=== PATIENT | female | born 1965 | race Caucasian/White ===

== ENCOUNTER 2023-05-13 08:11 | Emergency (ER) | payer BC, SELFPAY ==
--- NOTE | ~2023-05-13 | XR_ITS ---
EXAMINATION: XR wrist RT min 3V INDICATION: Right wrist pain, initial encounter TECHNIQUE: Three views of the right wrist are obtained. COMPARISON: None available FINDINGS: There is an acute, traumatic, closed, transverse, comminuted fracture of the distal radius. The distal fracture fragment demonstrates 5 mm of dorsal displacement. There is a transverse ulnar s tyloid avulsion. Soft tissue swelling surrounds the fractures. Radiocarpal alignment is normal. IMPRESSION: 1. Comminuted, minimally displaced distal radius fracture. 2. Ulnar styloid avulsion. Reviewed, dictated and finalized at location B.
--- NOTE | ~2023-05-13 | XR_ITS ---
EXAMINATION: XR forearm RT 2V INDICATION: Right forearm pain, initial encounter TECHNIQUE: Two views of the right forearm are obtained on three radiographs COMPARISON: None available FINDINGS: There is an acute, traumatic, closed, comminuted, transverse fracture of the distal radius. The distal fracture fragment is dorsally displaced by approximately 5 mm. Radiocarpal alignment appe ars normal. There is normal alignment at the elbow. Ulnar styloid avulsion is also noted. IMPRESSION: 1. Comminuted, minimally displaced transverse fracture of the distal radius. 2. Ulnar styloid avulsion. Reviewed, dictated and finalized at location B.
--- NOTE | ~2023-05-13 | XR_ITS ---
EXAMINATION: XR elbow RT 2V INDICATION: Right elbow pain TECHNIQUE: Two views of the right elbow are obtained. COMPARISON: None available FINDINGS: No fracture, dislocation, or subluxation. The bones, soft tissues, and joint spaces are nor mal. IMPRESSION: 1. No acute osseous abnormality. Reviewed, dictated and finalized at location B.
--- NOTE | ~2023-05-13 | XR_ITS ---
EXAMINATION: XR hip RT 2V w AP pelvis INDICATION: Right hip pain TECHNIQUE: AP view the pelvis and two views of the right hip are obtained. COMPARISON: None available FINDINGS: Bone alignment is normal. There is no fracture. The soft tissues are unremarkable. IMPRESSION: 1. No acute osseous abnormality. Reviewed, dictated and finalized at location B.
--- NOTE | ~2023-05-13 | XR_ITS ---
EXAMINATION: XR knee LT 3V DATE: 05/13/2023 09:50 INDICATION: Left knee pain TECHNIQUE: Three views of the left knee were obtained. COMPARISON: None. FINDINGS: Alignment is normal. No fracture or osteochondral lesion. Joint spaces are normal with no e rosions. No joint effusion/synovitis. Soft tissues are unremarkable. IMPRESSION: 1. No acute osseous abnormality. Reviewed, dictated and finalized at location B.
[2023-05-13 08:10] VITALS: BP 171/100; PULSE 115; RESP 20; O2SAT 98
[2023-05-13 08:30] VITALS: TEMP 36.6
--- NOTE | 2023-05-13 08:32 | PC.NURSE ---
Pt stated to this RN that it was completely ridiculous that I could not give her morphine before the provider assessed her. Pt was educated that nurses are unable to prescribe medications and a MD would be in shortly.
[2023-05-13] MEDS: MORPHINE SULFATE (*CRX) 4 MG/ML INJ IV PUSH ×2 (08:47→09:28)
[2023-05-13 11:31] VITALS: BP 145/79; PULSE 120; RESP 18; O2SAT 100
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
--- NOTE | 2023-05-13 12:05 | PC.NURSE ---
Nurse to bedside to given d/c instructions, pt requesting housing resources. Care Coordination notified of pt request.
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
--- NOTE | 2023-05-13 12:07 | PC.NURSE ---
Care coordination provided resources for housing for pt
== END 2023-05-13 12:07 | disposition home or self-care (01) ==
PROVIDERS: Emergency Provider Emergency Medicine
DX: S52.591A Other fractures of lower end of right radius, initial encounter for closed fracture (principal); S52.611A Displaced fracture of right ulna styloid process, initial encounter for closed fracture; V18.4XXA Pedal cycle driver injured in noncollision transport accident in traffic accident, initial encounter; Y93.55 Activity, bike riding
CPT/HCPCS: 29125; 73070; 73090; 73110; 73502; 73562; 96374; 96376; 99284; A4565; J2270

== ENCOUNTER 2023-11-10 10:45 | Outpatient (RCR) | payer BC, SELFPAY ==
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
--- NOTE | 2023-10-10 14:38 | OPREHPOC ---
Outpatient Therapy Plan of Care This is a Multidisciplinary Plan of Care that may contain components documented by all disciplines (PT, OT, and ST.) OT Problem 1 OT Problem #1 Knowledge Deficit OT Goal 1 Goal 1. Patient to be independent with instructed materials. Target Visit 8 OT Problem 2 OT Problem #2 Impaired Range of Motion OT Goal 1 Goal 1. Increase active ROM of the right UE: - supination to 80 deg. - wrist flexion to 60 deg. - wrist extension to 60 deg. - be able to make a hook fist with 1 cm or less gap between the finger tips and DPC Target Visit 8 OT Problem 3 OT Problem #3 Impaired Strength OT Goal 1 Goal 1. Increase (R) contract forester strength to 50 lbs. 2. Increase (R) wrist gross strength as demonstrated by being able to complete wrist strengthening with 2 lb. free weight in all planes x20 reps. Target Visit 8
--- NOTE | 2023-11-10 11:40 | OTOPPROG ---
Assessment and note entered by ELIEZER Carmen/Brent, CHT Progress Update 11/10/23 Diagnosis Right distal radius fracture Onset 05/13/23 Subjective Information Patient reports some progress, but does report residual stiffness and discomfort with and use. She states she is having an easier time with writing, washing her back, and lifting pots/pans. States she has to still use her left hand for hygiene tasks during toileting. During our month of therapy she has developed a trigger finger in the right middle finger, so we've had to scale back on strengthening and focusing on reducing inflammation. She is very concerned about the trigger finger and is not happy with the progress of this finger. She has been wearing a splint during the day and a compression glove at night to help with the trigger finger. Recommended to her that an injection could be beneficial to this finger. ROM of the forearm and wrist has returned to functional limits. Technical Manager strength improved from 35 lbs. to 50 lbs. Quickdash at start of care: 45.5% Quickdash today: 40.9% Assessment OT Clinical Summary Patient referred to OT with dx of right distal radius fracture. During our course of therapy she developed a trigger finger to the right middle finger and treatments have also began to include splinting and treatment for this. Discussed the benefits of scheduling an appointment with the doctor to discuss an injection to the tendon. She continues to have ADL limitations due to residual weakness, stiffness, and inflammation. Continued skilled OT indicated to maximize functional ROM and strength of the right wrist/hand via therapeutic exercise, modalities, manual therapy, and HEP instruction and progression. Plan of Care Interventions Therapeutic Exercise,Manual Therapy,Therapeutic Activities,Hot Pack/Cold Pack,Ultrasound,Paraffin OT Services Indicated Yes Treatment Frequency and 2x/week for 3 weeks Duration These treatments will address the objective and functional deficits as defined above. The patient will be advanced safely and appropriately in order for the patient to progress towards his/her prior level of function. Additional exercises will be introduced and as well as a comprehensive home exercise program upon discharge, if needed, ?to ensure carryover of functional gains achieved in the clinic. This treatment plan has been reviewed and agreement upon by the patient.
--- NOTE | 2023-11-10 11:41 | OPREHPOC ---
Outpatient Therapy Plan of Care This is a Multidisciplinary Plan of Care that may contain components documented by all disciplines (PT, OT, and ST.) OT Problem 1 OT Problem #1 Knowledge Deficit OT Goal 1 Goal 1. Patient to be independent with instructed materials. ---OT POC UPDATE 11/10/23--- 1. Met, continue as HEP is progressed Target Visit 15 OT Problem 2 OT Problem #2 Impaired Range of Motion OT Goal 1 Goal 1. Increase active ROM of the right UE: - supination to 80 deg. - wrist flexion to 60 deg. - wrist extension to 60 deg. - be able to make a hook fist with 1 cm or less gap between the finger tips and DPC Target Visit 8 OT Problem 3 OT Problem #3 Impaired Strength OT Goal 1 Goal 1. Increase (R) singer songwriter strength to 50 lbs. 2. Increase (R) wrist gross strength as demonstrated by being able to complete wrist strengthening with 2 lb. free weight in all planes x20 reps. ---OT POC UPDATE 11/10/23--- 1. Met, upgrade to 60 lbs. 2. Able to complete with 1 lb, continue goal Target Visit 15 OT Problem 4 OT Problem #4 Impaired Flexibility OT Goal 1 Goal 1. Patient to demonstrate reduced signs/symptoms of a trigger finger as demonstrated by being able to complete singer songwriter strengthening with yellow putty x5 minute without finger triggering. Target Visit 15
--- NOTE | 2023-12-05 08:48 | OTOPDC ---
Assessment and note entered by Hugo Archer, OTR/Brent, CHT Discharge Notification 12/05/23 OT Clinical Summary Patient has not returned for therapy since her re- evaluation on 11/10/23. Please refer to 11/10/23 progress note for most recent patient update and summary. Discharging today due to lack of attendance.
== END 2023-12-26 09:20 | disposition home or self-care (01) ==
LOC: ANHOT 10:45
PROVIDERS: Visit Provider Orthopaedic Surgery
DX: S52.501D Unspecified fracture of the lower end of right radius, subsequent encounter for closed fracture with routine healing (principal)
CPT/HCPCS: 97014; 97018; 97035; 97110; 97140; 97165; G0283; L3933